=== PATIENT | female | born 1970 | race African-American/Black ===

== ENCOUNTER 2019-04-11 18:49 | Inpatient (IN) | payer BC, OTHER ==
--- NOTE | 2019-04-11 19:01 | PDOC ---
Rapid Medical Evaluation Time Seen by Provider: 04/11/19 18:57 Medical Evaluation: Allergies Allergy/AdvReac Type Severity Reaction Status Date / Time No Known Allergies Allergy Verified 04/11/19 18:57 04/11/19 18:58 Pt c/o: cough, sob, went to urgent care clinic and had elevated bp and was tachycardic, pt with hx htn but not taking meds x 6 months, no cp, urinary complaints, no le edema, intermittent headache Pt on brief exam: tachy 113, bp 210/133, lcta, no pedal edema, temp 99.6 pt ordered for: labs, cxr, urine Pt to proceed to the ED Discharge Disposition - Diagnosis Fall, Cough - Discharge Dispostion Condition at time of disposition: Good - Referrals - Patient Instructions - Post Discharge Activity
--- NOTE | 2019-04-11 20:34 | PDOC ---
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 Per the patient, she denies recent hx of URI and denies recent sick contacts. Per the patient, she has had generalized malaise for the past 2 days and presented to urgent care 1 day ago for similar symptoms to today's presenting symptoms. Per the patient, she denies the following: fever , chills, nausea, vomiting, chest pain, lightheadedness, palpitations, abdominal pain, dysuria, hematuria, diarrhea, and hematochezia. Denies leg pain/ swelling. Allergies: NKDA Past History - Past Medical History Allergies/Adverse Reactions: Allergies Allergy/AdvReac Type Severity Reaction Status Date / Time No Known Allergies Allergy Verified 04/11/19 18:57 Home Medications: Ambulatory Orders Furosemide [Lasix -] 20 mg PO DAILY #30 tablet 04/13/19 Losartan Potassium [Cozaar -] 25 mg PO DAILY #30 tablet 04/13/19 CVA: Yes (STROKE -10 YRS AGO) COPD: No Dialysis: No HTN: Yes Lung CA: No - Surgical History Cholecystectomy: No Lung Surgery: No - Immunization History Immunization Up to Date: No - Psycho Social/Smoking Cessation Hx Smoking History: Never smoked Have you smoked in the past 12 months: No Information on smoking cessation initiated: No Hx Alcohol Use: No Drug/Substance Use Hx: No Review of Systems - Review of Systems Able to Perform ROS?: Yes Is the patient limited Amharic proficient: No Constitutional: Yes: Malaise. No: Chills, Diaphoresis, Fever, Weakness HEENTM: No: Eye Pain, Ear Pain, Nose Pain, Throat Pain, Mouth Pain Respiratory: Yes: Shortness of Breath, SOB at Rest. No: Cough, Hemoptysis Cardiac (ROS): No: Chest Pain, Lightheadedness, Palpitations, Syncope, Chest Tightness ABD/GI: No: Constipated, Diarrhea, Nausea, Rectal Bleeding, Vomiting, Tarry Stools : No: Burning, Dysuria, Hematuria, Incontinence Musculoskeletal: No: Back Pain, Joint Pain, Neck Pain Integumentary: No: Bruising, Erythema, Rash Neurological: No: Headache, Numbness, Tingling, Tremors Psychiatric: No: Change in Appetite Endocrine: No: Unexplained Weight Gain Hematologic/Lymphatic: No: Anemia *Physical Exam - Vital Signs Last Vital Signs Temp Pulse Resp BP Pulse Ox 99.6 F 115 H 16 210/128 H 99 04/11/19 18:59 04/11/19 18:59 04/11/19 18:59 04/11/19 18:59 04/11/19 18:59 - Physical Exam General Appearance: Yes: Nourished, Appropriately Dressed. No: Apparent Distress, Intoxicated HEENT: positive: EOMI, VANESSA, Normal Voice, Symmetrical, Pharynx Normal, Hearing Grossly Normal. negative: Pale Conjunctivae, Scleral Icterus (R), Scleral Icterus (L), Muffled/Hoarse voice, Pharyngeal Erythema, Tonsillar Exudate, Tonsillar Erythema, Nasal Congestion, Rhinorrhea, Sinus Tenderness, Excessive drooling Neck: positive: Trachea midline, Supple. negative: Tender, Lymphadenopathy (R) , Lymphadenopathy (L), Tender lateral, Tender midline Respiratory/Chest: positive: Lungs Clear, Normal Breath Sounds. negative: Chest Tender, Respiratory Distress Cardiovascular: positive: Regular Rhythm, S1, S2, Tachycardia. negative: Systolic Murmur Gastrointestinal/Abdominal: positive: Normal Bowel Sounds, Flat, Soft. negative : Tender, Distended, Guarding, Rebound, Tenderness Lymphatic: negative: Adenopathy Musculoskeletal: positive: Normal Inspection. negative: CVA Tenderness, Vertebral Tenderness Extremity: positive: Normal Capillary Refill, Normal Inspection, Normal Range of Motion. 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 Initial vitals: Initial Vital Signs Temp Pulse Resp BP Pulse Ox 99.6 F 115 H 16 210/128 H 99 04/11/19 18:59 04/11/19 18:59 04/11/19 18:59 04/11/19 18:59 04/11/19 18:59 Work up: ddx: ACS vs CHF? vs asthma exacerbation vs PNA Laboratory Tests 04/11/19 04/11/19 04/11/19 21:15 21:15 21:15 WBC 7.4 RBC 4.26 Hgb 12.1 Hct 37.1 MCV 87.0 MCH 28.3 MCHC 32.5 RDW 13.5 Plt Count 314 MPV 8.3 Absolute Neuts (auto) 4.3 Neutrophils % 58.3 Lymphocytes % 32.5 Monocytes % 5.6 Eosinophils % 2.7 Basophils % 0.9 Nucleated RBC % 0 PT with INR 14.50 H INR 1.23 H D-Dimer Sodium 141 Potassium 4.4 Chloride 108 H Carbon Dioxide 29 Anion Gap 4 L BUN 10.1 Creatinine 0.8 Est GFR (CKD-EPI)AfAm 98.93 Est GFR (CKD-EPI)NonAf 85.36 Random Glucose 97 Calcium 9.1 Magnesium 2.1 Total Bilirubin 0.2 AST 38 H ALT 52 Alkaline Phosphatase 108 Troponin I 0.02 B-Natriuretic Peptide 1187.2 H Total Protein 7.5 Albumin 4.0 Urine Color Urine Appearance Urine pH Ur Specific [place] Urine Protein Urine Glucose (UA) Urine Ketones Urine Blood Urine Nitrite Urine Bilirubin Urine Urobilinogen Ur Leukocyte Esterase 04/11/19 04/11/19 22:46 22:46 WBC RBC Hgb Hct MCV MCH MCHC RDW Plt Count MPV Absolute Neuts (auto) Neutrophils % Lymphocytes % Monocytes % Eosinophils % Basophils % Nucleated RBC % PT with INR INR D-Dimer 459 Sodium Potassium Chloride Carbon Dioxide Anion Gap BUN Creatinine Est GFR (CKD-EPI)AfAm Est GFR (CKD-EPI)NonAf Random Glucose Calcium Magnesium Total Bilirubin AST ALT Alkaline Phosphatase Troponin I B-Natriuretic Peptide Total Protein Albumin Urine Color Yellow Urine Appearance Cloudy Urine pH 8.0 Ur Specific [place] 1.018 Urine Protein Trace Urine Glucose (UA) Negative Urine Ketones Negative Urine Blood Negative Urine Nitrite Negative Urine Bilirubin Negative Urine Urobilinogen 1.0 Ur Leukocyte Esterase Negative Initially treated with duoneb and solumedrol with mild improvement in symptoms d-dimer negative troponin negative BNP elevated to 1185. Patient was given nitroglycerin paste and 40 mg of lasix with improvement in symptoms. Patient symptoms in conjunction with lab work indicates new onset of CHF. CXR negative for acute process EKG: ventricular rate is 104 bpm, Sinus tachycardia, with TWI in V6. No ST elevations or depressions. Dispo: admit patient for new onset of CHF; needs cardiac work up. Discharge - Discharge Information Problems reviewed: Yes Clinical Impression/Diagnosis: Fall, Cough Condition: Good - Follow up/Referral - Patient Discharge Instructions - Post Discharge Activity
--- NOTE | 2019-04-11 20:36 | PDOC ---
Attending Attestation - Resident Resident Name: Shad Everett - ED Attending Attestation I have performed the following: I have examined & evaluated the patient, The case was reviewed & discussed with the resident, I agree w/resident's findings & plan - HPI HPI: 04/11/19 23:03 see resident hpi - Physicial Exam PE: 04/11/19 23:04 agree with resident exam - Medical Decision Making 04/11/19 23:04 49-year-old female with a history of hypertension now complaining of elevated blood pressure and increasing dyspnea on exertion Chest x-ray and labs suggest new onset CHF Nitrates to the chest wall as well as Lasix 40 mg IV given Troponin within normal limits Patient tachycardic on arrival with no acute ST segment elevations She will be admitted to medical service for further evaluation
[2019-04-11] MEDS ORDERED: ALBUTEROL SO4 2.5/IPRATROPIUM 0.5 INH SOL 3 ML VIAL.NEB. NEB ONE ×2 (21:23→21:54)
[2019-04-11 21:33] LABS: BASO % 0.9 % (0-2.0); EOS % 2.7 % (0-4.5); HEMATOCRIT 37.1 % (32.4-45.2); HEMOGLOBIN 12.1 GM/dL (10.7-15.3); LYMPH % 32.5 % (8-40); MCH 28.3 pg (25.7-33.7); MCHC 32.5 g/dl (32.0-36.0); MEAN PLT VOLUME 8.3 fl (7.5-11.1); MONO % 5.6 % (3.8-10.2); NEUT % 58.3 % (42.8-82.8); PLATELET COUNT 314 K/MM3 (134-434); RBC 4.26 M/mm3 (3.60-5.2); RDW 13.5 % (11.6-15.6); WHITE BLOOD COUNT 7.4 K/mm3 (4.0-10.0)
[2019-04-11 22:01] LABS: BILIRUBIN,TOTAL 0.2 mg/dL (0.2-1); BLOOD UREA NITROGEN 10.1 mg/dL (7-18); CALCIUM 9.1 mg/dL (8.5-10.1); CREATININE 0.8 mg/dL (0.55-1.3); MAGNESIUM 2.1 mg/dL (1.8-2.4); POTASSIUM 4.4 mmol/L (3.5-5.1); TOT PROT 7.5 g/dl (6.4-8.2)
[2019-04-11] MEDS ORDERED: methylPREDNISolone NA SUCC 125 MG/2 ML VIAL IVPB ONE (22:28)
[2019-04-11] MEDS ORDERED: NITROGLYCERIN 2% OINTMENT - 1GM PACKET TD ONE ×2 (22:28→22:50)
[2019-04-11] MEDS ORDERED: FUROSEMIDE 40 MG/4 ML INJECTABLE VIAL IVPUSH ONE (22:38)
[2019-04-11] MEDS ORDERED: FUROSEMIDE 40 MG/4 ML INJECTABLE VIAL ONE (22:50)
[2019-04-11] MEDS ORDERED: methylPREDNISolone NA SUCC 125 MG/2 ML VIAL ONE (22:50)
[2019-04-11 22:54] LABS: N-TERMINAL BNP 1187.2 pg/ml (5-125)
[2019-04-11 23:01] LABS: URINE APPEARANCE CLOUDY; URINE BILIRUBIN NEGATIVE (NEGATIVE); URINE COLOR YELLOW; URINE GLUCOSE (UA) NEGATIVE (NEGATIVE); URINE KETONE NEGATIVE (NEGATIVE); URINE LEUK ESTERASE NEGATIVE (NEGATIVE); URINE NITRITE NEGATIVE (NEGATIVE); URINE PROTEIN TRACE (NEGATIVE)
[2019-04-12 01:30] LABS: INR 1.23 (0.83-1.09); PROTHROMBIN TIME (PATIENT) 14.5 SEC (9.7-13.0)
[2019-04-12] MEDS: ALBUTEROL SO4 2.5/IPRATROPIUM 0.5 INH SOL 3 ML VIAL.NEB. NEB PRN ×2 (04:18→17:40)
[2019-04-12 07:19] LABS: BASO % 0.1 % (0-2.0); HEMATOCRIT 34.6 % (32.4-45.2); HEMOGLOBIN 11.6 GM/dL (10.7-15.3); LYMPH % 8.6 % (8-40); MCH 28.6 pg (25.7-33.7); MCHC 33.4 g/dl (32.0-36.0); MEAN CELL VOLUME 85.6 fl (80-96); MEAN PLT VOLUME 8.3 fl (7.5-11.1); MONO % 1.2 % (3.8-10.2); NEUT % 90.1 % (42.8-82.8); PLATELET COUNT 287 K/MM3 (134-434); RBC 4.04 M/mm3 (3.60-5.2); RDW 13.3 % (11.6-15.6); WHITE BLOOD COUNT 7.8 K/mm3 (4.0-10.0)
[2019-04-12 08:04] LABS: ALBUMIN 4.1 g/dl (3.4-5.0); BILIRUBIN,TOTAL 0.2 mg/dL (0.2-1); BLOOD UREA NITROGEN 14.4 mg/dL (7-18); CALCIUM 8.8 mg/dL (8.5-10.1); CREATININE 0.9 mg/dL (0.55-1.3); POTASSIUM 3.7 mmol/L (3.5-5.1); TOT PROT 7.5 g/dl (6.4-8.2)
[2019-04-12] MEDS ORDERED: PT OWN MED DRAWER 7, Y5N ONE (09:35)
[2019-04-12] MEDS: HEPARIN NA (PORCINE) 5,000 UNITS/ML 1ML VIAL SQ SCH ×2 (10:09→21:28)
[2019-04-12] MEDS: FUROSEMIDE 40 MG/4 ML INJECTABLE VIAL IVPUSH SCH (10:09)
--- NOTE | 2019-04-12 11:43 | HP ---
Admitting History and Physical - Admission History of Present Illness: Pt is a 49 y/o female w/ PMH significant for HTN, TIA(10 years ago) who now presents to the ER w/ SOB, orthopnea, and dyspnea on exertion. Pt has not been feeling well for last few days, went to urgent care yesterday because she has history of bronchitis and had worsening cough. In the ER pt was found to have BP there 220/120. Pt has not been on any anti-hypertensives in the past 6 months. - Past Medical History Cardiovascular: Yes: HTN - Smoking History Smoking history: Never smoked Have you smoked in the past 12 months: No - Alcohol/Substance Use Hx Alcohol Use: No Home Medications - Allergies Allergies/Adverse Reactions: Allergies Allergy/AdvReac Type Severity Reaction Status Date / Time No Known Allergies Allergy Verified 04/11/19 18:57 - Home Medications Home Medications: Ambulatory Orders NK [No Known Home Medication] 04/12/19 Family Medical History Family History: Unremarkable Review of Systems - Review of Systems Constitutional: reports: No Symptoms Eyes: reports: No Symptoms HENT: reports: No Symptoms Neck: reports: No Symptoms Cardiovascular: reports: Shortness of Breath Respiratory: reports: Cough, SOB Gastrointestinal: reports: No Symptoms Genitourinary: reports: No Symptoms Physical Examination Vital Signs: Vital Signs Temperature 98 F 04/12/19 10:00 Pulse Rate 88 04/12/19 10:00 Respiratory Rate 04/12/19 10:00 Blood Pressure 127/84 04/12/19 10:00 O2 Sat by Pulse Oximetry (%) 97 04/12/19 04:00 Constitutional: Yes: Well Nourished Eyes: Yes: WNL HENT: Yes: WNL Neck: Yes: WNL, Supple Cardiovascular: Yes: WNL, Regular Rate and Rhythm Respiratory: Yes: WNL, Regular, CTA Bilaterally Gastrointestinal: Yes: WNL, Normal Bowel Sounds, Soft Musculoskeletal: Yes: WNL Extremities: Yes: WNL Edema: No Neurological: Yes: WNL, Alert, Oriented ...Motor Strength: WNL Labs: CBC, BMP 04/12/19 05:30 04/12/19 05:30 Problem List - Problems (1) CHF (congestive heart failure) Assessment/Plan: CHF exacerbation Cont IV lasix Pt was given NTP wc improved BP Check echo Cardio consult Code(s): I50.9 - HEART FAILURE, UNSPECIFIED (2) Hypertensive urgency Assessment/Plan: Pt started on IV lasix Monitor BP Code(s): I16.0 - HYPERTENSIVE URGENCY
--- NOTE | 2019-04-12 11:59 | EKG ---
Test Reason : Blood Pressure : / mmHG Vent. Rate : 104 BPM Atrial Rate : 104 BPM P-R Int : 156 ms QRS Dur : 080 ms QT Int : 344 ms P-R-T Axes : 059 026 -06 degrees QTc Int : 452 ms SINUS TACHYCARDIA POSSIBLE LEFT ATRIAL ENLARGEMENT LEFT VENTRICULAR HYPERTROPHY NONSPECIFIC T WAVE ABNORMALITY ABNORMAL ECG Confirmed by MD KATI, JAE ([id number]) on 04/12/2019 11:59:24 AM Referred By: Confirmed By:JAE PARIKH MD
--- NOTE | 2019-04-12 12:33 | CON.CARD ---
Consult Consult Specialty:: Cardiology Referred by:: Medicine Reason for Consultation:: CHF - History of Present Illness Chief Complaint: short of breath History of Present Illness: 49F h/o HTN, TIA 10 years ago p/w shortness of breath, orthopnea, dyspnea on exertion. Has not been feeling well for last few days, went to urgent care yesterday because she has history of bronchitis and had worsening cough. BP there 220/120, was sent to ER. per pt she was on anti-hypertensives but hasn't taken in at least 6 months, thinks she was on lindsay. BP improved with IV lasix, nitrates. Shortness of breath better this AM, no chest pain, palps, dizziness. - Alcohol/Substance Use Hx Alcohol Use: No - Smoking History Smoking history: Never smoked Have you smoked in the past 12 months: No Home Medications - Allergies Allergies/Adverse Reactions: Allergies Allergy/AdvReac Type Severity Reaction Status Date / Time No Known Allergies Allergy Verified 04/11/19 18:57 - Home Medications Home Medications: Ambulatory Orders NK [No Known Home Medication] 04/12/19 Family Medical History Family History: Unremarkable Review of Systems - Review of Systems Constitutional: reports: No Symptoms Eyes: reports: No Symptoms HENT: reports: No Symptoms Neck: reports: No Symptoms Cardiovascular: reports: No Symptoms Respiratory: reports: No Symptoms Gastrointestinal: reports: No Symptoms Genitourinary: reports: No Symptoms Musculoskeletal: reports: No Symptoms Integumentary: reports: No Symptoms Neurological: reports: No Symptoms Endocrine: reports: No Symptoms Hematology/Lymphatic: reports: No Symptoms Psychiatric: reports: No Symptoms Vital Signs: Vital Signs Temperature 98 F 04/12/19 10:00 Pulse Rate 88 04/12/19 10:00 Respiratory Rate 04/12/19 10:00 Blood Pressure 127/84 04/12/19 10:00 O2 Sat by Pulse Oximetry (%) 97 04/12/19 04:00 Constitutional: Yes: No Distress, Calm Eyes: Yes: Conjunctiva Clear, EOM Intact HENT: Yes: Atraumatic, Normocephalic Neck: Yes: Supple, Trachea Midline Respiratory: Yes: Regular, Wheezes (diffuse mild exp wheezes) Gastrointestinal: Yes: Normal Bowel Sounds, Soft Cardiovascular: Yes: Regular Rate and Rhythm JVD: No Heart Sounds: Yes: S1, S2 Extremities: No: Cold Edema: No Integumentary: No: Jaundice Neurological: Yes: Alert, Oriented Psychiatric: No: Agitated - Other Data Labs, Other Data: CBC, BMP 04/12/19 05:30 04/12/19 05:30 INR, PTT INR 1.23 (0.83-1.09) H 04/11/19 21:15 Troponin, BNP 04/11/19 04/12/19 21:15 02:00 Troponin I 0.02 0.02 B-Natriuretic Peptide 1187.2 H Troponin, BNP 04/11/19 04/12/19 21:15 02:00 Troponin I 0.02 0.02 B-Natriuretic Peptide 1187.2 H Assessment/Plan EKG: sinus tachycardia, LVH, nonspecific ST abnormality tele: sinus shortness of breath, acute CHF exacerbation - echo pending - may be in setting of uncontrolled HTN - presented with BP 220/120, not compliant with home meds - cont IV lasix - monitor Cr, lytes, daily weights COPD - nebs, steroids per primary HTN - improved on lasix, monitor
--- NOTE | 2019-04-12 13:07 | ECHO ---
Version: 1 Name: MELISSA SHORT Exam: Adult Echocardiogram Study Date: 04/12/2019, 9:15 AM Age: 49 Years MMode/2D Measurements & Calculations IVSd: 0.94 cm LVIDs: 3.7 cm LVIDd: 5.2 cm LVPWd: 0.89 cm LAV (MOD-bp): 70.0 ml ACS: 1.89 cm Ao root diam: 2.7 cm LVOT diam: 1.97 cm LA dimension: 3.3 cm Doppler Measurements & Calculations MV E max genaro: 73.5 cm/sec Med E/e': 14.8 MV A max genaro: 76.5 cm/sec Med Peak E' Genaro: 5.0 cm/sec MV E/A: 0.96 Lat E/e': 12.8 Lat Peak E' Genaro: 5.8 cm/sec Ao max P.4 mmHg SHANI(I,D): 3.1 cm Ao mean P.3 mmHg LV V1 mean: 78.5 cm/sec Ao V2 max: 153.4 cm/sec LV V1 mean P.9 mmHg TR max genaro: 153.4 cm/sec TR max P.6 mmHg Left Ventricle The left ventricular size, thickness and function are normal. Ejection Fraction = 60-65%. The transm itral spectral Doppler flow pattern is suggestive of impaired LV relaxation. Right Ventricle The right ventricle is normal in size and function. Atria The left atrium is mildly dilated. Right atrial size is normal. Mitral Valve There is mild mitral valve thickening. There is mild mitral regurgitation. Tricuspid Valve The tricuspid valve is normal in structure and function. There was insufficient TR detected to calcu late RV systolic pressure. Aortic Valve The aortic valve is normal in structure and function. Pulmonic Valve The pulmonic valve is not well visualized. Great Vessels The aortic root is not well visualized. Pericardium/Pleura There is no pericardial effusion. Summary Statements The left ventricular size, thickness and function are normal. Ejection Fraction = 60-65%. The right ventricle is normal in size and function. The left atrium is mildly dilated. Right atrial size is normal. The aortic valve is normal in structure and function. There is mild mitral valve thickening. There is mild mitral regurgitation. 04/12/2019, 1:06 MD Nhung [place] PM Ordering Physician: Stephanie Perez Referring Physician: STEPHANIE PEREZ Performed By: Margret Soto
[2019-04-13] MEDS: FUROSEMIDE 40 MG/4 ML INJECTABLE VIAL IVPUSH SCH (10:03)
[2019-04-13] MEDS: HEPARIN NA (PORCINE) 5,000 UNITS/ML 1ML VIAL SQ SCH ×2 (10:03→21:16)
[2019-04-13] MEDS ORDERED: LOSARTAN POTASSIUM 25 MG TABLET PO SCH (11:58)
--- NOTE | 2019-04-13 12:02 | PN ---
Progress Note (short form) - Note Progress Note: s: no chest pain, palps, dizziness, dyspnea. Current Medications Albuterol/Ipratropium (Duoneb -) 1 amp NEB RQID PRN PRN Reason: SHORTNESS OF BREATH Last Admin: 04/12/19 17:40 Dose: 1 amp Furosemide (Lasix -) 20 mg PO DAILY [facility] Heparin Sodium (Porcine) (Heparin -) 5,000 unit SQ BID JARRED Last Admin: 04/13/19 10:03 Dose: 5,000 unit Losartan Potassium (Cozaar -) 25 mg PO DAILY JARRED Vital Signs Period Temp Pulse Resp BP Sys/Ralph Pulse Ox Last 24 Hr 97.8 F-98.4 F 77-102 18-22 134-180/72-99 97 Constitutional: Yes: No Distress, Calm Eyes: Yes: Conjunctiva Clear, EOM Intact HENT: Yes: Atraumatic, Normocephalic Neck: Yes: Supple, Trachea Midline Respiratory: Yes: Regular, Wheezes (diffuse mild exp wheezes) Gastrointestinal: Yes: Normal Bowel Sounds, Soft Cardiovascular: Yes: Regular Rate and Rhythm JVD: No Heart Sounds: Yes: S1, S2 Extremities: No: Cold Edema: No Integumentary: No: Jaundice Neurological: Yes: Alert, Oriented Psychiatric: No: Agitated Assessment/Plan EKG: sinus tachycardia, LVH, nonspecific ST abnormality tele: sinus shortness of breath, acute CHF exacerbation - echo pending - may be in setting of uncontrolled HTN - presented with BP 220/120, not compliant with home meds - echo nl LV function - change lasix to 20 mg daily COPD - nebs, steroids per primary HTN - start losartan 25 mg daily - thinks she was on this at home - strongly encouraged close outpatient follow up for BP management - f/u in 1-2 weeks
[2019-04-13] MEDS ORDERED: amLODIPine BESYLATE 5 MG TABLET (FP) PO ONE (18:15)
--- NOTE | 2019-04-13 22:25 | PN ---
Progress Note, Physician History of Present Illness: Pt was found to have increased BP and discharge was held - Current Medication List Current Medications: Active Medications Albuterol/Ipratropium (Duoneb -) 1 amp NEB RQID PRN PRN Reason: SHORTNESS OF BREATH Last Admin: 04/12/19 17:40 Dose: 1 amp Furosemide (Lasix -) 20 mg PO DAILY [facility] Heparin Sodium (Porcine) (Heparin -) 5,000 unit SQ BID [facility] Last Admin: 04/13/19 21:16 Dose: 5,000 unit Losartan Potassium (Cozaar -) 25 mg PO DAILY [facility] Last Admin: 04/13/19 14:01 Dose: 25 mg - Objective Vital Signs: Vital Signs Temperature 98.5 F 04/13/19 21:03 Pulse Rate 90 04/13/19 21:03 Respiratory Rate 04/13/19 21:03 Blood Pressure 161/95 04/13/19 21:03 O2 Sat by Pulse Oximetry (%) 98 04/13/19 20:44 Cardiovascular: Yes: WNL, Regular Rate and Rhythm Respiratory: Yes: WNL, Regular, CTA Bilaterally Gastrointestinal: Yes: WNL, Normal Bowel Sounds, Soft Labs: CBC, BMP 04/12/19 05:30 04/12/19 05:30 INR, PTT INR 1.23 (0.83-1.09) H 04/11/19 21:15 Problem List - Problems (1) CHF (congestive heart failure) Assessment/Plan: CHF exacerbation Cont lasix/lisinopril Code(s): I50.9 - HEART FAILURE, UNSPECIFIED (2) Hypertensive urgency Assessment/Plan: Cont lasix/lisinopril [facility] added Code(s): I16.0 - HYPERTENSIVE URGENCY
[2019-04-14] MEDS ORDERED: FUROSEMIDE 20 MG TABLET (FP) PO SCH (10:00)
[2019-04-14] MEDS ORDERED: LOSARTAN POTASSIUM 50 MG TABLET (FP) PO SCH (10:00)
[2019-04-14] MEDS: HEPARIN NA (PORCINE) 5,000 UNITS/ML 1ML VIAL SQ SCH (10:28)
--- NOTE | 2019-04-14 10:37 | PN ---
Progress Note (short form) - Note Progress Note: s: no chest pain, palps, dizziness, dyspnea. Current Medications Generic Name Dose Route Start Last Admin Trade Name Freq PRN Reason Stop Dose Admin Albuterol/Ipratropium 1 amp 04/12/19 01:45 04/12/19 17:40 Duoneb - NEB 1 amp RQID PRN Administration SHORTNESS OF BREATH Furosemide 20 mg 04/14/19 10:00 04/14/19 10:28 Lasix - PO 20 mg DAILY JARRED Administration Heparin Sodium (Porcine) 5,000 unit 04/12/19 10:00 04/14/19 10:28 Heparin - SQ 5,000 unit BID JARRED Administration Losartan Potassium 50 mg 04/14/19 10:00 04/14/19 10:28 Cozaar - PO 50 mg DAILY JARRED Administration Vital Signs Period Temp Pulse Resp BP Sys/Ralph Pulse Ox Last 24 Hr 98.2 F-99 F 82-105 18-22 131-181/57-115 98 Constitutional: Yes: No Distress, Calm Eyes: Yes: Conjunctiva Clear, EOM Intact HENT: Yes: Atraumatic, Normocephalic Neck: Yes: Supple, Trachea Midline Respiratory: Yes: ctabl nl eff Gastrointestinal: Yes: Normal Bowel Sounds, Soft Cardiovascular: Yes: Regular Rate and Rhythm JVD: No Heart Sounds: Yes: S1, S2 Extremities: No: Cold Edema: No Integumentary: No: Jaundice Neurological: Yes: Alert, Oriented Psychiatric: No: Agitated CBC, BMP 04/12/19 05:30 04/12/19 05:30 Assessment/Plan EKG: sinus tachycardia, LVH, nonspecific ST abnormality tele: sinus shortness of breath, acute CHF exacerbation - may be in setting of uncontrolled HTN - presented with BP 220/120, not compliant with home meds - echo nl LV function - cont lasix 20 mg daily COPD - nebs, steroids per primary HTN - cont current meds - strongly encouraged close outpatient follow up for BP management - f/u in 1-2 weeks
[2019-04-14 11:25] VITALS: PULSE 84; TEMP 98.4
[2019-04-14 12:06] VITALS: BP 150/91
[2019-04-14 13:26] VITALS: BMI 27.8
== END 2019-04-14 14:40 | disposition home or self-care (01) | DRG 292 ==
LOC: JER 18:49 → JERBED 23:25 → J4W 04-12 04:07
PROVIDERS: ADMIT Internal Medicine; ATTEND Internal Medicine
DX: I11.0 Hypertensive heart disease with heart failure (principal); I69.354 Hemiplegia and hemiparesis following cerebral infarction affecting left non-dominant side; I16.0 Hypertensive urgency; R00.0 Tachycardia, unspecified; I50.9 Heart failure, unspecified
CPT/HCPCS: 36415; 70450-TC; 71045-TC-FY; 80053; 81003; 82550; 82553; 83735; 83880; 84484; 85025; 85379; 85610; 93005; 93010; 93306-TC; 94640; 99284-25; J1644

== ENCOUNTER → 2022-05-01 | Day surgery (SDC) | payer OTHER | END | disposition home or self-care (01) | LOC: FMAMMOTONE 09:52 | PROVIDERS: ATTEND Family Medicine Geriatric Medicine | PROC: 0HBT3ZX Excision of Right Breast, Percutaneous Approach, Diagnostic (ICD-10-PCS; principal; 2022-05-01) | DX: Z53.8 Procedure and treatment not carried out for other reasons (principal); R92.0 Mammographic microcalcification found on diagnostic imaging of breast ==

== ENCOUNTER → 2022-07-01 | Day surgery (SDC) | payer OTHER | END | disposition home or self-care (01) | LOC: FMAMMOTONE 13:14 | PROVIDERS: ATTEND Family Medicine Geriatric Medicine | PROC: 0HBT3ZX Excision of Right Breast, Percutaneous Approach, Diagnostic (ICD-10-PCS; principal; 2022-07-01) | DX: N60.91 Unspecified benign mammary dysplasia of right breast (principal); N64.89 Other specified disorders of breast; R92.0 Mammographic microcalcification found on diagnostic imaging of breast | CPT/HCPCS: 19081; 76098-TC-FY; 87899; 88305-TC; A4648 ==

== ENCOUNTER 2022-08-08 04:05 | Inpatient (IN) | payer OTHER ==
[~2022-08-08 04:05] MED LIST: BUPIVACAINE HCL/PF 0.5% (5MG/ML) 10 ML VIAL IJ ONE; ceFAZolin SODIUM 1 GM VIAL IVPB ONE
[2022-08-08] MEDS ORDERED: ACETAMINOPHEN INJECTION 100 ML IVPB ONE (10:32)
[2022-08-08] MEDS ORDERED: MIDAZOLAM HCL 2 MG/2 ML SINGLE DOSE VIAL ONE (10:34)
[2022-08-08] MEDS ORDERED: ceFAZolin SODIUM 1 GM VIAL IVPB ONE (10:58)
[2022-08-08] MEDS ORDERED: BUPIVACAINE HCL/PF 0.5% (5MG/ML) 10 ML VIAL IJ ONE (11:08)
[2022-08-08] MEDS ORDERED: PROPOFOL 20 ML ONE ×3 (11:08→13:27)
[2022-08-08] MEDS ORDERED: SUCCINYLCHOLINE CHLORIDE 200 MG/10 ML SYRINGE ONE (11:33)
[2022-08-08] MEDS ORDERED: PROPOFOL 1,000,000 MCG/100 ML VIAL IVPB SCH (14:15)
[2022-08-08 16:49] LABS: BASO % 0.2 % (0-2.0); EOS % 0.3 % (0-4.5); HEMATOCRIT 34.6 % (32.4-45.2); HEMOGLOBIN 11.5 GM/dL (10.7-15.3); LYMPH % 12.3 % (8-40); MCH 28.8 pg (25.7-33.7); MCHC 33.3 g/dl (32.0-36.0); MEAN CELL VOLUME 86.4 fl (80-96); MONO % 2.6 % (3.8-10.2); NEUT % 84.6 % (42.8-82.8); PLATELET COUNT 335 10^3/uL (134-434); RDW 13.2 % (11.6-15.6); WHITE BLOOD COUNT 13.9 K/mm3 (4.0-10.0)
[2022-08-08] MEDS: ALBUTEROL SULFATE 0.021% (0.63 MG/3 ML) VIAL.NEB NEB ONE ×3 (17:05→20:40)
[2022-08-08 17:08] LABS: POTASSIUM 3.2 mmol/L (3.5-5.1)
[2022-08-08 17:10] LABS: CALCIUM 8.9 mg/dL (8.5-10.1)
[2022-08-08 17:11] LABS: BLOOD UREA NITROGEN 18.4 mg/dL (7-18)
[2022-08-08 17:14] LABS: CREATININE 1.1 mg/dL (0.55-1.3)
[2022-08-08 19:10] VITALS: BMI 29.7
[2022-08-09 07:41] LABS: POTASSIUM 3.5 mmol/L (3.5-5.1)
[2022-08-09 07:46] LABS: ALBUMIN 3.4 g/dl (3.4-5.0); BLOOD UREA NITROGEN 20.2 mg/dL (7-18); CALCIUM 8.8 mg/dL (8.5-10.1)
[2022-08-09 07:48] LABS: CREATININE 1.1 mg/dL (0.55-1.3)
[2022-08-09 07:50] LABS: BILIRUBIN,TOTAL 0.4 mg/dL (0.2-1)
[2022-08-09 07:51] LABS: TOT PROT 6.7 g/dl (6.4-8.2)
[2022-08-09 07:56] LABS: BASO % 0.3 % (0-2.0); EOS % 0.2 % (0-4.5); HEMATOCRIT 28.2 % (32.4-45.2); HEMOGLOBIN 9.7 GM/dL (10.7-15.3); LYMPH % 15.2 % (8-40); MCH 29.2 pg (25.7-33.7); MCHC 34.4 g/dl (32.0-36.0); MEAN CELL VOLUME 84.9 fl (80-96); MONO % 3.4 % (3.8-10.2); NEUT % 80.9 % (42.8-82.8); PLATELET COUNT 298 10^3/uL (134-434); RBC 3.32 M/mm3 (3.60-5.2); RDW 13.5 % (11.6-15.6); WHITE BLOOD COUNT 12.6 K/mm3 (4.0-10.0)
[2022-08-09] MEDS ORDERED: PROPOFOL 40 ML ONE (08:14)
[2022-08-09] MEDS ORDERED: SUCCINYLCHOLINE CHLORIDE 200 MG/10 ML SYRINGE ONE ×2 (08:15→08:23)
[2022-08-09] MEDS: FUROSEMIDE 40 MG/4 ML INJECTABLE VIAL IVPUSH SCH (09:46)
[2022-08-09] MEDS: POTASSIUM CHLORIDE ORAL LIQUID 20 MEQ/15 ML PO SCH ×2 (09:46→21:49)
[2022-08-09] MEDS: ENOXAPARIN NA (PORCINE) 40 MG/0.4 ML DISP.SYRIN SQ SCH (09:46)
[2022-08-09] MEDS: ACETAMINOPHEN 1000 MG/100 ML BAG IVPB PRN (13:49)
[2022-08-09] MEDS ORDERED: PIPERACILLIN/TAZOB 3.375 GM 3.375 GM in DEXTROSE 5%-WATER - 50 ML IVPB SCH (14:45)
[2022-08-09] MEDS: PIPERACILLIN/TAZOB 3.375 GM 3.375 GM in DEXTROSE 5%-WATER - 50 ML IVPB SCH (17:23)
[2022-08-09 17:56] LABS: EPI CELLS 4 /uL (0-25.1); HYALINE CASTS 1 /uL (0-3.1); URINE APPEARANCE CLEAR; URINE BACTERIA 5 /uL (0-1359); URINE BILIRUBIN NEGATIVE (NEGATIVE); URINE COLOR YELLOW; URINE GLUCOSE (UA) NEGATIVE (NEGATIVE); URINE KETONE NEGATIVE (NEGATIVE); URINE LEUK ESTERASE NEGATIVE (NEGATIVE); URINE NITRITE NEGATIVE (NEGATIVE); URINE PROTEIN NEGATIVE (NEGATIVE); URINE RBC 149 /uL (0-23.9); URINE UROBILINOGEN 0.2 mg/dL (0.2-1.0); URINE WBC 9 /uL (0-25.8)
[2022-08-10] MEDS: PIPERACILLIN/TAZOB 3.375 GM 3.375 GM in DEXTROSE 5%-WATER - 50 ML IVPB SCH ×2 (02:50→09:04)
[2022-08-10] MEDS: ACETAMINOPHEN 1000 MG/100 ML BAG IVPB PRN (03:22)
[2022-08-10 08:27] LABS: BASO % 0.5 % (0-2.0); HEMATOCRIT 28.7 % (32.4-45.2); HEMOGLOBIN 9.6 GM/dL (10.7-15.3); LYMPH % 29.8 % (8-40); MCH 28.7 pg (25.7-33.7); MCHC 33.5 g/dl (32.0-36.0); MEAN CELL VOLUME 85.8 fl (80-96); MONO % 6.2 % (3.8-10.2); NEUT % 61.5 % (42.8-82.8); PLATELET COUNT 292 10^3/uL (134-434); RBC 3.34 M/mm3 (3.60-5.2); RDW 13.7 % (11.6-15.6); WHITE BLOOD COUNT 8.5 K/mm3 (4.0-10.0)
[2022-08-10 08:42] LABS: POTASSIUM 3.3 mmol/L (3.5-5.1)
[2022-08-10 08:46] LABS: ALBUMIN 3.7 g/dl (3.4-5.0); BLOOD UREA NITROGEN 21.6 mg/dL (7-18); CALCIUM 8.8 mg/dL (8.5-10.1)
[2022-08-10 08:47] LABS: CREATININE 1.2 mg/dL (0.55-1.3)
[2022-08-10 08:49] LABS: TOT PROT 7.2 g/dl (6.4-8.2)
[2022-08-10 08:51] LABS: BILIRUBIN,TOTAL 0.8 mg/dL (0.2-1)
[2022-08-10] MEDS: FUROSEMIDE 40 MG/4 ML INJECTABLE VIAL IVPUSH SCH (09:03)
[2022-08-10] MEDS: POTASSIUM CHLORIDE ORAL LIQUID 20 MEQ/15 ML PO SCH (09:03)
[2022-08-10] MEDS: ENOXAPARIN NA (PORCINE) 40 MG/0.4 ML DISP.SYRIN SQ SCH (09:03)
[2022-08-10 14:20] VITALS: BP 113/64; PULSE 99; RESP 20; TEMP 98.2
[2022-08-10] MEDS ORDERED: POTASSIUM CHLORIDE ORAL LIQUID 20 MEQ/15 ML PO ONE (15:00)
== END 2022-08-10 15:57 | disposition home or self-care (01) | DRG 584 ==
LOC: JASU-SURG 04:05 → J2C 15:10 → J4W 19:14
PROVIDERS: ADMIT Internal Medicine; ATTEND Surgery
PROC: 0HBT0ZX Excision of Right Breast, Open Approach, Diagnostic (ICD-10-PCS; principal; 2022-08-08 09:30)
DX: N62 Hypertrophy of breast (principal); J81.1 Chronic pulmonary edema; R09.02 Hypoxemia; I11.0 Hypertensive heart disease with heart failure; I50.9 Heart failure, unspecified; D72.829 Elevated white blood cell count, unspecified; Z86.73 Personal history of transient ischemic attack (TIA), and cerebral infarction without residual deficits
CPT/HCPCS: 19281; 36415; 71045-TC-FY; 76098-TC-FY; 80048; 80053; 81003; 83880; 84484; 85025; 87086; 88307-TC; 93005; 93010; 93306-TC; 94760; C9803-CS; U0003; U0005